=== PATIENT | female | born 1975 | race Caucasian/White ===

== ENCOUNTER 2022-12-05 09:49 | Emergency (ER) | payer MEDICAID ==
[~2022-12-05] VITALS: Ht 154.9 cm; Wt 95.3 kg
[2022-12-05] MEDS ORDERED: GUAIFENESIN LA 600 MG TABLET.SA PO ONE ×2 (10:15→10:17)
[2022-12-05] MEDS ORDERED: OXYMETAZOLINE NASAL 0.05% 15 ML SPRAY NS ONE ×2 (10:15→10:17)
[2022-12-05] MEDS ORDERED: BENZONATATE 100 MG CAPSULE PO ONE (10:15)
[2022-12-05] MEDS ORDERED: ALBUTEROL SULFATE 8 GM HFA.AER.AD IH PRN (10:15)
[2022-12-05] MEDS ORDERED: ALBUTEROL SULFATE 8 GM HFA.AER.AD ONE (10:17)
[2022-12-05] MEDS ORDERED: BENZONATATE 100 MG CAPSULE ONE (10:17)
[2022-12-05 10:21] LABS: HEMATOCRIT 24.8 % (31.2-41.9); MEAN CORPUSCULAR HEMOGLOBIN 19.2 uug (24.7-32.8); MEAN CORPUSCULAR VOLUME 63.7 fL (75.5-95.3); PLATELET COUNT (AUTO) 358 K/uL (179-408)
--- NOTE | 2022-12-05 10:25 | NUR ---
Pt seen by . Safety measures in place. Will continue to monitor.
[2022-12-05 10:39] LABS: CARBON DIOXIDE 25 mmol/L (21-32); CHLORIDE 108 mmol/L (98-107); CREATININE 0.5 mg/dL (0.6-1.3); GLUCOSE 89 mg/dL (74-106); UREA NITROGEN, BLOOD 8 mg/dL (7-18)
--- NOTE | 2022-12-05 11:48 | NUR ---
Received Pt's signature/authorization for possible blood transfusion. Safety measures in place. Kyle continue to monitor.
--- NOTE | 2022-12-05 13:16 | NUR ---
Started administration of 1unit pRBCs. No reactions currently. Safety measures in place. Will continue to monitor.
--- NOTE | 2022-12-05 14:32 | NUR ---
No reactions from current infusion of pRBCs. Safety measures in place. Will continue to monitor.
--- NOTE | 2022-12-05 15:00 | NUR ---
Blood transfusion complete. No adverse symptoms noted. Pt tolerated procedure well. Blood transfusion documentation in Pt's chart. Safety measures in place. Will continue to monitor.
--- NOTE | 2022-12-05 15:14 | NUR ---
Patient discharged to home in stable condition. Written and verbal after care instructions given. Patient verbalizes understanding of instructions. Stressed follow up or return to ER for worsening s/s.
[2022-12-05 15:15] VITALS: BP 114/63
[2022-12-05] MEDS ORDERED: GUAI1TBM19 PO (17:24)
[2022-12-05] MEDS ORDERED: BENZ-13 PO (17:24)
[2022-12-05] MEDS ORDERED: ALBU8.5H8 INH (17:24)
== END 2022-12-05 15:16 | disposition home or self-care (01) ==
LOC: ER 09:49
DX: D64.89 Other specified anemias (principal); N93.9 Abnormal uterine and vaginal bleeding, unspecified; N80.03 Adenomyosis of the uterus; R05.9 Cough, unspecified; D72.819 Decreased white blood cell count, unspecified; Z90.49 Acquired absence of other specified parts of digestive tract; Z20.822 Contact with and (suspected) exposure to COVID-19
CPT/HCPCS: 87804 ×2; 80048; 85025; 86850; 86900; 86901; 86920; 87426; 84484; 36415; 93005; 71045; 76856; 99291; 36430; P9016; J7040; A4663; J3535

== ENCOUNTER 2023-07-30 18:01 | Emergency (ER) | payer MEDICAID ==
[~2023-07-30] VITALS: Ht 154.9 cm; Wt 92.1 kg
[~2023-07-30 18:01] MED LIST: ALBU8.5H8 INH; BENZ-13 PO; GUAI1TBM19 PO
[2023-07-30] MEDS ORDERED: ACETAMINOPHEN ES 500 MG TABLET ONE (21:29)
[2023-07-30] MEDS ORDERED: MECLIZINE HCL 25 MG TABLET ONE (21:29)
[2023-07-30] MEDS: ACETAMINOPHEN ES 500 MG TABLET PO ONE (21:32)
[2023-07-30] MEDS: MECLIZINE HCL 25 MG TABLET PO ONE (21:32)
[2023-07-30 21:52] LABS: BASOPHILS % (AUTO) 0.4 % (0.0-2.0); DIFFERENTIAL COMMENT 1; EOSINOPHILS # (AUTO) 0.2 K/uL (0.0-0.7); EOSINOPHILS % (AUTO) 2.4 % (0.0-7.0); HEMATOCRIT 32.1 % (31.2-41.9); HEMOGLOBIN 10.3 g/dL (10.9-14.3); LYMPHOCYTES # (AUTO) 1.3 K/uL (0.8-4.8); LYMPHOCYTES % (AUTO) 18.8 % (20.5-51.5); MEAN CORPUSCULAR HGB CONC 32 g/dL (32.3-35.6); MEAN CORPUSCULAR VOLUME 78.2 fL (75.5-95.3); MONOCYTES # (AUTO) 0.4 K/uL (0.1-1.30); MONOCYTES % (AUTO) 6.2 % (0.0-11.0); NEUTROPHILS % (AUTO) 72.2 % (38.5-71.5); PLATELET COUNT (AUTO) 264 K/uL (179-408); RED BLOOD CELL COUNT(AUTO) 4.11 MIL/uL (3.63-4.92); WHITE BLOOD COUNT (AUTO) 6.9 K/uL (3.8-11.8)
[2023-07-30 22:06] LABS: ALBUMIN 3.2 g/dL (3.4-5.0); BILIRUBIN,TOTAL 0.3 mg/dL (0.2-1.0); CREATININE 0.6 mg/dL (0.6-1.3); POTASSIUM 3.7 mmol/L (3.5-5.1); TOTAL PROTEIN, SERUM 6.7 g/dL (6.4-8.2)
[2023-07-30 22:12] LABS: CALCIUM 9.6 mg/dL (8.5-10.1)
[2023-07-30] MEDS ORDERED: MECL-159 PO (22:29)
[2023-07-30] MEDS ORDERED: AMOX-430 PO (22:29)
[2023-07-30 22:41] VITALS: BP 105/56; TEMP 98.5; O2SAT 99
== END 2023-07-30 22:41 | disposition home or self-care (01) ==
LOC: ER 18:03
DX: J06.9 Acute upper respiratory infection, unspecified (principal); R42 Dizziness and giddiness; H66.92 Otitis media, unspecified, left ear; Z90.49 Acquired absence of other specified parts of digestive tract; Z79.899 Other long term (current) drug therapy
CPT/HCPCS: 36415; 84484; 85025; A4606; A4663; A9150; J8597

== ENCOUNTER 2023-10-24 13:38 | Emergency (ER) | payer MEDICAID ==
[~2023-10-24] VITALS: Ht 154.9 cm; Wt 104.3 kg
[~2023-10-24 13:38] MED LIST changes: +AMOX-430 PO; +MECL-159 PO
[2023-10-24] MEDS ORDERED: OMEP20TA5 PO (13:55)
[2023-10-24] MEDS: IV NORMAL SALINE 1000 ML BAG IV ONE (14:27)
[2023-10-24 15:06] LABS: BASOPHILS % (AUTO) 0.1 % (0.0-2.0); EOSINOPHILS # (AUTO) 2.2 K/uL (0.0-0.7); HEMATOCRIT 35.8 % (31.2-41.9); HEMOGLOBIN 11.6 g/dL (10.9-14.3); LYMPHOCYTES # (AUTO) 0.6 K/uL (0.8-4.8); LYMPHOCYTES % (AUTO) 7.4 % (20.5-51.5); MEAN CORPUSCULAR HEMOGLOBIN 26.7 uug (24.7-32.8); MEAN CORPUSCULAR HGB CONC 33 g/dL (32.3-35.6); MEAN CORPUSCULAR VOLUME 82.1 fL (75.5-95.3); MONOCYTES # (AUTO) 0.1 K/uL (0.1-1.30); MONOCYTES % (AUTO) 1.6 % (0.0-11.0); NEUTROPHILS # (AUTO) 4.8 K/uL (1.8-8.9); NEUTROPHILS % (AUTO) 62.6 % (38.5-71.5); PLATELET COUNT (AUTO) 220 K/uL (179-408); RED BLOOD CELL COUNT(AUTO) 4.36 MIL/uL (3.63-4.92); WHITE BLOOD COUNT (AUTO) 7.7 K/uL (3.8-11.8)
[2023-10-24 15:18] LABS: DIFFERENTIAL COMMENT 1; EOSINOPHILS % (AUTO) 28.3 % (0.0-7.0)
[2023-10-24 15:48] LABS: CARBON DIOXIDE 24 mmol/L (21-32); CHLORIDE 107 mmol/L (98-107); CREATININE 0.6 mg/dL (0.6-1.3); GLUCOSE 111 mg/dL (74-106); POTASSIUM 3.1 mmol/L (3.5-5.1); SODIUM SERUM 140 mmol/L (136-145); UREA NITROGEN, BLOOD 12 mg/dL (7-18)
[2023-10-24 15:58] LABS: ALANINE AMINOTRANSFERASE 22 U/L (14-59); ALBUMIN 3.1 g/dL (3.4-5.0); ALKALINE PHOSPHATASE 96 U/L (50-136); ASPARTATE AMINOTRANSFERASE < 5 U/L (15-37); BILIRUBIN,TOTAL 0.3 mg/dL (0.2-1.0); LIPASE 38 U/L (16-77); TOTAL PROTEIN, SERUM 6.7 g/dL (6.4-8.2)
[2023-10-24 16:01] LABS: BILIRUBIN,DIRECT < 0.1 mg/dL (0.0-0.2)
[2023-10-24] MEDS ORDERED: MECLIZINE HCL 25 MG TABLET ONE (17:46)
[2023-10-24] MEDS: MECLIZINE HCL 25 MG TABLET PO ONE (17:48)
[2023-10-24 19:30] VITALS: BP 115/63; TEMP 98; O2SAT 99
== END 2023-10-24 19:31 | disposition home or self-care (01) ==
LOC: ER 13:38
DX: R42 Dizziness and giddiness (principal); N92.0 Excessive and frequent menstruation with regular cycle; Z98.890 Other specified postprocedural states; Z79.899 Other long term (current) drug therapy; Z60.2 Problems related to living alone
CPT/HCPCS: 99284; 96360; 70450; 96361; 80076; 80048; 83690; 85025; 85730; 86850; 86900; 86901; 84484; 36415; 93005; J7040; A4606; A4663; J8597

== ENCOUNTER 2024-03-18 09:48 | Emergency (ER) | payer OTHER ==
[~2024-03-18] VITALS: Ht 152.4 cm; Wt 92.5 kg
[~2024-03-18 09:48] MED LIST changes: +HYDR-3980 PO; +OMEP20TA5 PO; +ONDA4TAB11 PO
[2024-03-18] MEDS: IV NORMAL SALINE 1000 ML BAG IV ONE (10:06)
[2024-03-18 10:27] LABS: BASOPHILS % (AUTO) 0.5 % (0.0-2.0); EOSINOPHILS # (AUTO) 0.2 K/uL (0.0-0.7); EOSINOPHILS % (AUTO) 3.2 % (0.0-7.0); HEMATOCRIT 33.4 % (31.2-41.9); HEMOGLOBIN 10.5 g/dL (10.9-14.3); LYMPHOCYTES # (AUTO) 0.9 K/uL (0.8-4.8); LYMPHOCYTES % (AUTO) 17.9 % (20.5-51.5); MEAN CORPUSCULAR HGB CONC 31 g/dL (32.3-35.6); MEAN CORPUSCULAR VOLUME 73.5 fL (75.5-95.3); MONOCYTES # (AUTO) 0.4 K/uL (0.1-1.30); MONOCYTES % (AUTO) 7.1 % (0.0-11.0); NEUTROPHILS # (AUTO) 3.7 K/uL (1.8-8.9); NEUTROPHILS % (AUTO) 71.3 % (38.5-71.5); PLATELET COUNT (AUTO) 297 K/uL (179-408); RED BLOOD CELL COUNT(AUTO) 4.54 MIL/uL (3.63-4.92); RED CELL DISTRIBUTION WIDTH 17.8 % (12.3-17.7); WHITE BLOOD COUNT (AUTO) 5.2 K/uL (3.8-11.8)
[2024-03-18 10:29] LABS: CALCIUM 10.1 mg/dL (8.5-10.1); CARBON DIOXIDE 26 mmol/L (21-32); CHLORIDE 109 mmol/L (98-107); CREATININE 0.5 mg/dL (0.6-1.3); GLUCOSE 106 mg/dL (74-106); POTASSIUM 3.7 mmol/L (3.5-5.1); SODIUM SERUM 141 mmol/L (136-145); UREA NITROGEN, BLOOD 6 mg/dL (7-18)
[2024-03-18 10:30] LABS: DIFFERENTIAL COMMENT 1
[2024-03-18 10:49] LABS: *BLOOD, URINE 1+ (NEGATIVE); *CLARITY,URINE CLEAR (CLEAR); *COLOR,URINE YELLOW (YELLOW); *KETONES,URINE NEGATIVE (NEGATIVE); *PROTEIN,URINE 1+ (NEGATIVE); *UROBILINOGEN,URINE 0.2 E.U./dl (NORMAL); LEUKOCYTE ESTERASE ,URINE NEGATIVE (NEGATIVE); NITRITE, URINE NEGATIVE (NEGATIVE); UGLUCOSE NEGATIVE (NEGATIVE)
[2024-03-18 10:51] LABS: *BILIRUBIN,URIN 1+ (NEGATIVE)
[2024-03-18 10:52] LABS: *URINE HCG, QUAL NEGATIVE (NEGATIVE)
[2024-03-18] MEDS ORDERED: FERR324T17 PO (11:25)
[2024-03-18] MEDS ORDERED: METO5TAB87 PO (11:25)
[2024-03-18 11:38] VITALS: BP 126/70; O2SAT 97
[2024-03-18 14:53] LABS: BACTERIA,URINE FEW /HPF (NONE SEEN); RBC,URINE 0-3 /HPF (0-3); SQUAMOUS EPITHELIAL CELL,UR FEW /HPF (NONE SEEN); URINE AMORPHOUS URATE MANY /HPF; WBC,URINE 0-3 /HPF (0-3)
[2024-03-18 16:56] LABS: ANISOCYTOSIS 1+; EOSINOPHILS % (MANUAL) 2 % (0-8); LYMPHOCYTES % (MANUAL) 20 % (20-40); MONOCYTES % (MANUAL) 5 % (2-10); NEUTROPHILS % (MANUAL) 73 % (42-75); PLATELET ESTIMATE ADEQUATE
[2024-03-18 16:57] LABS: HYPOCHROMASIA 1+; TEAR DROP CELLS 1+
== END 2024-03-18 11:38 | disposition home or self-care (01) ==
LOC: ER 09:48
DX: B34.9 Viral infection, unspecified (principal); D50.0 Iron deficiency anemia secondary to blood loss (chronic); R10.2 Pelvic and perineal pain; Z79.51 Long term (current) use of inhaled steroids; Z90.49 Acquired absence of other specified parts of digestive tract; Z98.890 Other specified postprocedural states; Z79.899 Other long term (current) drug therapy; Z60.2 Problems related to living alone
CPT/HCPCS: 36415; 70030-TC; 83605; 83690; 84703; 85025; A4606; A4663; J7040